=== PATIENT | male | born 1955 | race Caucasian/White ===

== ENCOUNTER 2019-08-27 14:35 | Emergency (ER) | payer MEDICARE, MEDICAID ==
[~2019-08-27] VITALS: Ht 180.3 cm; Wt 90.9 kg
[~2019-08-27 14:35] MED LIST: BACL10TA PO; CEPH-572 PO; FENO145T38 PO; KRIL500C PO; NITR100C PO; OMEP40CA13 PO; QUET-1 PO; TEMA15CA5 PO; UBID100C45 PO; ZOLP10TA PO
--- NOTE | 2019-08-27 15:28 | NUR ---
Awaitng ED provider.
--- NOTE | 2019-08-27 15:35 | NUR ---
Layne dee at bedside.
[2019-08-27] MEDS ORDERED: ketorolac tromethamine 15mg/ml inj. IM ONE (15:45)
[2019-08-27 15:59] LABS: BASOPHILS # (AUTO) 0.1 X10'3 (0-0.2); EOSINOPHILS # (AUTO) 0.3 X10'3 (0-0.9); EOSINOPHILS % (AUTO) 4.2 % (0-6); HEMATOCRIT 38.4 % (42.0-52.0); HEMOGLOBIN 13.2 g/dl (14.0-17.9); LYMPHOCYTES # (AUTO) 1.9 X10'3 (1.1-4.8); LYMPHOCYTES % (AUTO) 31.7 % (21-51); MEAN CORPUSCULAR HEMOGLOBIN 27.1 PG (27.0-31.0); MEAN CORPUSCULAR HGB CONC 34.3 g/dL (33.0-36.5); MEAN CORPUSCULAR VOLUME 78.9 FL (78-98); MEAN PLATELET VOLUME 6.6 FL (7.4-10.4); MONOCYTES # (AUTO) 0.5 X10'3 (0-0.9); MONOCYTES % (AUTO) 7.8 % (2-12); NEUTROPHILS # (AUTO) 3.4 X10'3 (1.8-7.7); NEUTROPHILS % (AUTO) 55.3 % (42-75); PLATELET COUNT 250 X10'3 (140-440); RED BLOOD COUNT 4.87 X10'6 (4.70-6.10); RED CELL DISTRIBUTION WIDTH 16.1 % (11.5-14.5); WHITE BLOOD COUNT 6.1 X10'3 (4.5-11.0)
[2019-08-27 16:17] LABS: CLARITY,URINE CLEAR (Clear); GLUCOSE, URINE NEGATIVE (Neg); KETONES,URINE NEGATIVE (Neg); LEUKOCYTE ESTERASE ,URINE TRACE (Neg); NITRITES, URINE NEGATIVE (Neg); OCCULT BLOOD,URINE NEGATIVE (Neg); PH,URINE 5.5 (4.8-8.0); PROTEIN,URINE NEGATIVE (Neg); UROBILINOGEN,URINE 0.2 E.U/dL (0.2-1.0)
[2019-08-27 16:19] LABS: ALANINE AMINOTRANSFERASE 28 U/L (12-78); ALBUMIN 3.4 G/DL (3.4-5.0); ALBUMIN/GLOBULIN RATIO 0.9 (1.1-1.5); ALKALINE PHOSPHATASE 87 IU/L (46-116); ANION GAP 3 (8-16); ASPARTATE AMINO TRANSFERASE 16 U/L (10-37); BILIRUBIN,TOTAL 0.3 MG/DL (0.1-1.0); BLOOD UREA NITROGEN 19 MG/DL (7-18); BUN/CREATININE RATIO 44.2 (5.4-32.0); CHLORIDE 107 MMOL/L (99-107); CREATININE 0.43 MG/DL (0.60-1.10); GLUCOSE 92 MG/DL (70-104); LIPASE 211 U/L (73-393); POTASSIUM 4.2 MMOL/L (3.5-5.1); SODIUM 142 MMOL/L (135-145); TOTAL CARBON DIOXIDE 32.1 MMOL/L (24-32); TOTAL PROTEIN 7.3 G/DL (6.4-8.2); eGFR > 90 ML/MIN
[2019-08-27 16:20] LABS: COLOR,URINE DARK YELLOW (Yellow); UA COLLECTION TYPE STRAIGHT CATH
[2019-08-27 16:32] LABS: BACTERIA,URINE FEW /HPF (Neg); MUCUS STRANDS MANY /LPF (Neg); RBC,URINE 0-2 /HPF (0-2); SQUAMOUS EPITHELIAL CELL,UR MODERATE /LPF (FEW); TRANSITIONAL EPI CELLS,URINE FEW /HPF; WBC CLUMPS,URINE FEW /HPF (NEGATIVE); YEAST FEW /HPF (NEGATIVE)
--- NOTE | 2019-08-27 16:44 | NUR ---
Straight cath patient,noted 300ml dark yellow urine, spouse at bedside.
[2019-08-27] MEDS ORDERED: cephalexin 250mg capsule PO ONE (16:50)
[2019-08-27] MEDS ORDERED: CEPH500C5 PO (16:53)
[2019-08-27] MEDS ORDERED: L. R1CAP4 PO (16:53)
[2019-08-27 17:10] VITALS: BP 118/89
== END 2019-08-27 17:11 | disposition home or self-care (01) ==
LOC: ER 14:35
DX: N39.0 Urinary tract infection, site not specified (principal); G82.20 Paraplegia, unspecified; Z79.2 Long term (current) use of antibiotics; Z79.899 Other long term (current) drug therapy
CPT/HCPCS: 36415; 80053; 81001; 83690; 85025; 87088; 96372; 99284; J1885

== ENCOUNTER 2021-09-12 11:17 | Inpatient (IN) | payer MEDICARE, MEDICAID ==
[~2021-09-12] VITALS: Ht 180.3 cm; Wt 88.6 kg
[~2021-09-12 11:17] MED LIST changes: +L. R1CAP4 PO; -OMEP40CA13 PO; +OMEP40CA21 PO
[2021-09-12 11:55] LABS: BASOPHILS % (AUTO) 0.4 % (0-1); EOSINOPHILS # (AUTO) 0.1 X10'3 (0-0.9); HEMATOCRIT 41.6 % (42.0-52.0); HEMOGLOBIN 13.8 g/dl (14.0-17.9); LYMPHOCYTES # (AUTO) 1.4 X10'3 (1.1-4.8); LYMPHOCYTES % (AUTO) 18.8 % (21-51); MEAN CORPUSCULAR HEMOGLOBIN 26.3 PG (27.0-31.0); MEAN CORPUSCULAR HGB CONC 33.1 g/dL (33.0-36.5); MEAN CORPUSCULAR VOLUME 79.4 FL (78-98); MEAN PLATELET VOLUME 6.6 FL (7.4-10.4); MONOCYTES # (AUTO) 0.5 X10'3 (0-0.9); NEUTROPHILS # (AUTO) 5.3 X10'3 (1.8-7.7); NEUTROPHILS % (AUTO) 71.8 % (42-75); PLATELET COUNT 222 X10'3 (140-440); RED BLOOD COUNT 5.25 X10'6 (4.70-6.10); RED CELL DISTRIBUTION WIDTH 17.9 % (11.5-14.5); WHITE BLOOD COUNT 7.3 X10'3 (4.5-11.0)
[2021-09-12 12:07] LABS: ALANINE AMINOTRANSFERASE 31 U/L (12-78); ALBUMIN 3.1 G/DL (3.4-5.0); ALBUMIN/GLOBULIN RATIO 0.8 (1.1-1.5); ALKALINE PHOSPHATASE 76 IU/L (46-116); ANION GAP 2 (8-16); ASPARTATE AMINO TRANSFERASE 16 U/L (10-37); BILIRUBIN,TOTAL 0.4 MG/DL (0.1-1.0); BLOOD UREA NITROGEN 15 MG/DL (7-18); BUN/CREATININE RATIO 31.9 (5.4-32.0); CALCIUM 8.9 MG/DL (8.5-10.1); CHLORIDE 102 MMOL/L (99-107); CREATININE 0.47 MG/DL (0.60-1.10); GLUCOSE 130 MG/DL (70-104); SODIUM 143 MMOL/L (135-145); TOTAL CARBON DIOXIDE 39.2 MMOL/L (24-32); TOTAL PROTEIN 6.8 G/DL (6.4-8.2); eGFR > 90 ML/MIN
--- NOTE | 2021-09-12 12:50 | NUR ---
Pt refused to have covid [address] Tsang informed of pt refusal. No new orders.
[2021-09-12] MEDS ORDERED: iohexol 350MG/ML 100ml bottle IV ONE (14:01)
[2021-09-12] MEDS ORDERED: magnesium Cl slow-release 64mg tablet PO PRN (16:20)
[2021-09-12] MEDS ORDERED: acetaminophen 325mg tablet PO PRN (16:20)
[2021-09-12] MEDS ORDERED: magnesium 2GM in 50ml NS 50 ML IV PRN (16:20)
[2021-09-12] MEDS ORDERED: magnesium 4gm in 100ml NS 100 ML IV PRN (16:20)
[2021-09-12] MEDS ORDERED: potassium Cl 20 mEq SR tablet PO PRN ×2 (16:20)
[2021-09-12] MEDS ORDERED: potassium CL 10mEq/100ml bag 100 ML IV PRN (16:20)
--- NOTE | 2021-09-12 16:50 | NUR ---
While at [place] [facility] Pt reports he is very uncomfortable and insist on being placed back in special wheel chair from home. Pt placed in chair, house superivisor notified pt in need of special bed for quad needs
[2021-09-12] MEDS ORDERED: BACL-11 PO ×2 (16:57)
[2021-09-12] MEDS ORDERED: TEMA30CA PO (16:57)
[2021-09-12] MEDS ORDERED: QUET200T31 PO (16:57)
[2021-09-12] MEDS ORDERED: ZOLP10TA PO (16:57)
[2021-09-12] MEDS ORDERED: OMEP20TA5 PO (17:07)
[2021-09-12] MEDS ORDERED: LIDOcaine 2% 10ml TOPICAL JELLY (Urojet) TP ONE (19:00)
[2021-09-12 20:00] VITALS: BP 120/64
[2021-09-12] MEDS: K and/or MAG REPLACEMENT MC SCH (20:00)
[2021-09-12 22:00] VITALS: BP 120/64
[2021-09-12 22:17] LABS: MAGNESIUM 2.2 MG/DL (1.5-2.4)
[2021-09-12] MEDS ORDERED: zolpidem 5mg tablet PO SCH (23:30)
[2021-09-12] MEDS ORDERED: temazepam 15mg capsule PO SCH (23:30)
[2021-09-12] MEDS: baclofen 10mg tablet PO SCH (23:33)
[2021-09-13 02:00] VITALS: BP 150/70
--- NOTE | 2021-09-13 06:37 | NUR ---
Patient transfer from ER into PCU room 3023 B in a stable condition, no signs of distress noted, oriented to room bed in lower position will continue to monitor and report changes
--- NOTE | 2021-09-13 06:39 | NUR ---
Problems reprioritized. Patient report given, questions answered & plan of care reviewed with Sara LIM .
[2021-09-13 07:00] VITALS: BP 92/56
[2021-09-13 07:05] LABS: ALBUMIN 2.9 G/DL (3.4-5.0); ANION GAP 3 (8-16); BLOOD UREA NITROGEN 16 MG/DL (7-18); BUN/CREATININE RATIO 35.6 (5.4-32.0); CHLORIDE 104 MMOL/L (99-107); CREATININE 0.45 MG/DL (0.60-1.10); GLUCOSE 110 MG/DL (70-104); MAGNESIUM 2.3 MG/DL (1.5-2.4); POTASSIUM 4.1 MMOL/L (3.5-5.1); SODIUM 143 MMOL/L (135-145); TOTAL CARBON DIOXIDE 36.1 MMOL/L (24-32); eGFR > 90 ML/MIN
--- NOTE | 2021-09-13 07:16 | NUR ---
Patient in room PCU 3023. I have received report from Corrine LIM and had the opportunity to ask questions and assume patient care. Patient resting quietly, resp even and unlabored, cpap in use.no distress noted at this time
--- NOTE | 2021-09-13 07:18 | NUR ---
Patient in room PCU 3023. I have received report from Corrine LIM and had the opportunity to ask questions and assume patient care. Pt semi fowlers, supported with many pillows, Cpap in place. no s/sx acute distress. safety measures in place
[2021-09-13 07:22] LABS: BASOPHILS % (AUTO) 0.4 % (0-1); EOSINOPHILS # (AUTO) 0.2 X10'3 (0-0.9); EOSINOPHILS % (AUTO) 3.3 % (0-6); HEMATOCRIT 39.7 % (42.0-52.0); HEMOGLOBIN 12.9 g/dl (14.0-17.9); LYMPHOCYTES # (AUTO) 1.7 X10'3 (1.1-4.8); LYMPHOCYTES % (AUTO) 24.8 % (21-51); MEAN CORPUSCULAR HEMOGLOBIN 26.1 PG (27.0-31.0); MEAN CORPUSCULAR HGB CONC 32.4 g/dL (33.0-36.5); MEAN CORPUSCULAR VOLUME 80.5 FL (78-98); MEAN PLATELET VOLUME 6.9 FL (7.4-10.4); MONOCYTES # (AUTO) 0.5 X10'3 (0-0.9); MONOCYTES % (AUTO) 7.7 % (2-12); NEUTROPHILS # (AUTO) 4.4 X10'3 (1.8-7.7); NEUTROPHILS % (AUTO) 63.8 % (42-75); PLATELET COUNT 209 X10'3 (140-440); RED BLOOD COUNT 4.92 X10'6 (4.70-6.10); RED CELL DISTRIBUTION WIDTH 17.7 % (11.5-14.5); WHITE BLOOD COUNT 6.9 X10'3 (4.5-11.0)
[2021-09-13] MEDS: K and/or MAG REPLACEMENT MC SCH ×2 (08:00→20:00)
[2021-09-13] MEDS ORDERED: COVID-19 VACC, MRNA(PFIZER)/PF--BNT162b2 syringe IMVAC ONE (10:00)
[2021-09-13 11:00] VITALS: BP 97/73
[2021-09-13 15:00] VITALS: BP 113/64
[2021-09-13] MEDS ORDERED: mag hydrox/Alum hydrox/simeth 30ml oral suspension PO PRN (15:50)
[2021-09-13] MEDS ORDERED: baclofen 10mg tablet PO PRN (15:50)
--- NOTE | 2021-09-13 16:45 | NUR ---
pt unable to complete orthostatic vitals. pt quadraplegic, without yet having seen PT. MD aware.
--- NOTE | 2021-09-13 17:26 | NUR ---
Orientee documentation: I have reviewed and agree with all interventions, assessments performed and documented by Kelvin LIM. Orientvasyl Medication Administration: For this medication-pass time frame, all medication were reviewed, dispensed, administered and documented per hospital policy by Kelvin LIM.
[2021-09-13 18:00] VITALS: BP 128/73
--- NOTE | 2021-09-13 18:21 | NUR ---
Problems reprioritized. Patient report given, questions answered & plan of care reviewed with Maliha LIM. Pt semi fowlers to right side in bed, supported with pillows with at bedside. dyspnic at baseline. no s/sx acute distress
--- NOTE | 2021-09-13 18:55 | NUR ---
Received report from offgoing RN; opportunities to ask question and review plan of care provided
[2021-09-13] MEDS ORDERED: quetiapine 100mg tablet PO SCH (20:30)
[2021-09-13] MEDS: baclofen 10mg tablet PO SCH (20:52)
[2021-09-13] MEDS ORDERED: zolpidem 5mg tablet PO SCH (21:00)
[2021-09-13 22:00] VITALS: BP 115/66
[2021-09-13] MEDS: CefTRIAXone 2gm/D5W 50ml BAG 50 ML IV SCH (23:34)
[2021-09-14 02:00] VITALS: BP 125/75
--- NOTE | 2021-09-14 06:00 | NUR ---
Patient in room PCU 3023. I have received report from RAPHAEL Jett and had the opportunity to ask questions and assume patient care.
--- NOTE | 2021-09-14 06:41 | NUR ---
Pt resting comfortably in bed, on 4LNC. Uneventful shift lab technician, pt was turned and repositioned q2hr to protect existing skin integrity. Pt denies pain at this time; CAUTI prevention measures in place for pt zaidi catheter. No bowel movement during the night. Pt tolerated all oral intake with no nausea/vomiting noted. Report given to oncoming RN.
[2021-09-14 07:11] LABS: BASOPHILS % (AUTO) 0.4 % (0-1); EOSINOPHILS # (AUTO) 0.2 X10'3 (0-0.9); EOSINOPHILS % (AUTO) 2.6 % (0-6); HEMATOCRIT 42.3 % (42.0-52.0); LYMPHOCYTES # (AUTO) 1.5 X10'3 (1.1-4.8); LYMPHOCYTES % (AUTO) 18.1 % (21-51); MEAN CORPUSCULAR HEMOGLOBIN 26.4 PG (27.0-31.0); MEAN CORPUSCULAR VOLUME 80.1 FL (78-98); MEAN PLATELET VOLUME 6.8 FL (7.4-10.4); MONOCYTES # (AUTO) 0.5 X10'3 (0-0.9); MONOCYTES % (AUTO) 5.9 % (2-12); NEUTROPHILS # (AUTO) 5.9 X10'3 (1.8-7.7); PLATELET COUNT 202 X10'3 (140-440); RED BLOOD COUNT 5.28 X10'6 (4.70-6.10); RED CELL DISTRIBUTION WIDTH 17.5 % (11.5-14.5); WHITE BLOOD COUNT 8.1 X10'3 (4.5-11.0)
[2021-09-14 07:37] LABS: ANION GAP 1 (8-16); BLOOD UREA NITROGEN 12 MG/DL (7-18); BUN/CREATININE RATIO 26.7 (5.4-32.0); CHLORIDE 104 MMOL/L (99-107); CREATININE 0.45 MG/DL (0.60-1.10); GLUCOSE 97 MG/DL (70-104); MAGNESIUM 2.3 MG/DL (1.5-2.4); POTASSIUM 4.1 MMOL/L (3.5-5.1); SODIUM 143 MMOL/L (135-145); TOTAL CARBON DIOXIDE 38.4 MMOL/L (24-32); eGFR > 90 ML/MIN
[2021-09-14] MEDS: K and/or MAG REPLACEMENT MC SCH (07:44)
[2021-09-14] MEDS: CefTRIAXone 2gm/D5W 50ml BAG 50 ML IV SCH (07:53)
[2021-09-14] MEDS ORDERED: pantoprazole 40mg Tablet.DR PO SCH (08:00)
[2021-09-14] MEDS ORDERED: LIDOcaine 1% (10mg/ml) 2ml vial ONE (08:18)
[2021-09-14 09:13] VITALS: BP 130/69
[2021-09-14 09:43] VITALS: BP 148/88
[2021-09-14 10:43] LABS: GLUCOSE,BODY FLUID 113 MG/DL; LDH,BODY FLUID 54 U/L; TOTAL PROTEIN,BODY FLUID 2.7 G/DL
[2021-09-14 11:00] VITALS: BP 104/67
[2021-09-14 11:04] LABS: BFSOURCE RIGHT PLEURAL FLD
--- NOTE | 2021-09-14 11:22 | NUR ---
Patient present SO2 between 89-91 % after hold the oxygen for 30min per order DR. Cortez. I paged the doctor to notify the findidngs.
[2021-09-14 11:30] LABS: EOSINOPHILS,BODY FLUID 1 %; LYMPHOCYTES,BODY FLUID 67 %; MONOCYTES,BODY FLUID 3 %; NEUTROPHILS,BODY FLUID 29 %
[2021-09-14 11:31] LABS: BF RBC COUNT 8550 /CU MM; BF WBC COUNT 1025 /CU MM (0-1000); BFAPPEAR CLOUDY; BFCOLOR RED; BFVOLUME 49 ML
--- NOTE | 2021-09-14 14:28 | NUR ---
O2 Sat at rest on room air:_84_% If below 89%: Recovery O2 Sat at rest on _2_LPM:_95_% via____NC (mask/nasal cannula, etc..) No further documentation is necessary. If O2 Sat did not drop below 89% on room air,ambulate patient on room air. O2 Sat while ambulating on room air:___% Recovery O2 Sat while ambulating on ___LPM:___% No further documentation is necessary. If patient does not drop below 89% while ambulating, he/she does not qualify for home O2.
--- NOTE | 2021-09-14 15:22 | NUR ---
PRESSURE ULCER EDUCATION: DEFINITION: A pressure ulcer is an area of skin that breaks down when you stay in one position too long. The constant pressure against the skin reduces the blood flow to that area and the affected tissue dies. CAUSES: "Being bedridden or in a wheelchair "Fragile skin "Having a chronic condition, such as diabetes or vascular disease "Inability to move certain parts of your body without assistance "Older age "Incontinence of urine or stool SYMPTOMS: "A reddened area that DOES NOT turn white when pressed on - this can be the beginning of a pressure ulcer "A blister, deep sore or a crater - these can be advanced pressure ulcers FIRST AID: "Relieve the pressure on this area "Keep the area clean and dry "Call your primary doctor if you see any of the above symptoms "DO NOT massage the area "DO NOT use a donut shaped or ring shaped pillow- these actually interfere with the blood flow and cause complications PREVENTION: "Check for pressure ulcers everyday "Change position at least every two hours to relieve pressure "Use items that help relieve pressure- pillows, sheepskin, foam padding, and powders. "Keep skin clean and dry "Eat healthy well balanced meals "Exercise daily IF YOU SEE ANY OF THESE SYMPTOMS WHILE IN THE HOSPITAL - TELL YOUR NURSE IMMEDIATELY. IF YOU SEE ANY OF THESE SYMPTOMS WHILE AT HOME OR HAVE ANY QUESTIONS OR CONCERNS ABOUT PRESSURE ULCERS - CALL YOUR PRIMARY DOCTOR IMMEDIATELY. Addendum: 09/14/21 at 1522 by Mae Roach RN Amended: Links added.
--- NOTE | 2021-09-14 15:34 | NUR ---
Bam Consult: Bam Subramanian w/ skin intact per physical assessment in EMR. Addendum: 09/14/21 at [address] Amended: Links added.
[2021-09-14] MEDS ORDERED: LEVO500T90 PO (15:46)
[2021-09-14] MEDS ORDERED: BACL-11 PO (15:47)
--- NOTE | 2021-09-14 17:25 | NUR ---
Patient discharge alert and oriented with 02 machine. IV's line and Grove Catheter was removed. Discharge instructions was discussed and the important to follow up with his PCP. Notified the medication was sent to the [facility]. The was carried by the family.
[2021-09-14] MEDS ORDERED: lactobacillus rhamnosus 10,000 MMU CELLS/CAPSULE PO SCH (20:00)
== END 2021-09-14 17:15 | disposition home or self-care (01) | DRG 189 ==
LOC: ER 11:18 → ED HOLD 16:22 → PCU 3S 19:30
PROVIDERS: ADMIT Internal Medicine; ATTEND Internal Medicine
PROC: B32T1ZZ Computerized Tomography (CT Scan) of Left Pulmonary Artery using Low Osmolar Contrast (ICD-10-PCS; 2021-09-12)
PROC: B3201ZZ Computerized Tomography (CT Scan) of Thoracic Aorta using Low Osmolar Contrast (ICD-10-PCS; 2021-09-12)
PROC: B32S1ZZ Computerized Tomography (CT Scan) of Right Pulmonary Artery using Low Osmolar Contrast (ICD-10-PCS; 2021-09-12)
PROC: 0W993ZZ Drainage of Right Pleural Cavity, Percutaneous Approach (ICD-10-PCS; principal; 2021-09-14)
PROC: 5A09357 Assistance with Respiratory Ventilation, Less than 24 Consecutive Hours, Continuous Positive Airway Pressure (ICD-10-PCS; 2021-09-14)
DX: J96.01 Acute respiratory failure with hypoxia (principal); G82.50 Quadriplegia, unspecified; J91.8 Pleural effusion in other conditions classified elsewhere; I50.30 Unspecified diastolic (congestive) heart failure; I11.0 Hypertensive heart disease with heart failure; I48.91 Unspecified atrial fibrillation; Z99.3 Dependence on wheelchair
CPT/HCPCS: 0001A; 32555; 36415; 71045; 71275; 80048; 80053; 82945; 83615; 83735; 83880; 83986; 84132; 84157; 84484; 85025; 87040; 87070; 87075; 87077; 87081; 87186; 89051; 91300; 93005; 93306; 97163; 97530; 99285; G0378; J0696; J3490; Q9967

== ENCOUNTER 2021-09-25 13:12 | Emergency (ER) | payer MEDICARE, MEDICAID ==
[~2021-09-25] VITALS: Ht 180.3 cm; Wt 100.0 kg
[~2021-09-25 13:12] MED LIST changes: +BACL-11 PO; -BACL10TA PO; -CEPH-572 PO; -FENO145T38 PO; -KRIL500C PO; -L. R1CAP4 PO; +LEVO500T90 PO; -NITR100C PO; +OMEP20TA5 PO; -OMEP40CA21 PO; -QUET-1 PO; +QUET200T31 PO; -TEMA15CA5 PO; -UBID100C45 PO
[2021-09-25 13:16] VITALS: BP 120/74
[2021-09-25 13:41] LABS: BASOPHILS % (AUTO) 0.5 % (0-1); EOSINOPHILS # (AUTO) 0.2 X10'3 (0-0.9); EOSINOPHILS % (AUTO) 1.9 % (0-6); HEMATOCRIT 44.5 % (42.0-52.0); HEMOGLOBIN 14.5 g/dl (14.0-17.9); LYMPHOCYTES # (AUTO) 1.3 X10'3 (1.1-4.8); MEAN CORPUSCULAR HGB CONC 32.5 g/dL (33.0-36.5); MEAN PLATELET VOLUME 6.8 FL (7.4-10.4); MONOCYTES # (AUTO) 0.5 X10'3 (0-0.9); MONOCYTES % (AUTO) 6.2 % (2-12); NEUTROPHILS # (AUTO) 5.9 X10'3 (1.8-7.7); NEUTROPHILS % (AUTO) 75.4 % (42-75); PLATELET COUNT 233 X10'3 (140-440); RED BLOOD COUNT 5.57 X10'6 (4.70-6.10); RED CELL DISTRIBUTION WIDTH 17.4 % (11.5-14.5); WHITE BLOOD COUNT 7.8 X10'3 (4.5-11.0)
[2021-09-25 13:58] LABS: ALANINE AMINOTRANSFERASE 20 U/L (12-78); ALBUMIN 3.1 G/DL (3.4-5.0); ALBUMIN/GLOBULIN RATIO 0.8 (1.1-1.5); ALKALINE PHOSPHATASE 80 IU/L (46-116); ANION GAP 3 (8-16); ASPARTATE AMINO TRANSFERASE 15 U/L (10-37); BILIRUBIN,TOTAL 0.5 MG/DL (0.1-1.0); BLOOD UREA NITROGEN 14 MG/DL (7-18); CALCIUM 9.2 MG/DL (8.5-10.1); CHLORIDE 100 MMOL/L (99-107); GLUCOSE 120 MG/DL (70-104); POTASSIUM 3.8 MMOL/L (3.5-5.1); SODIUM 141 MMOL/L (135-145); TOTAL CARBON DIOXIDE 37.8 MMOL/L (24-32); eGFR > 90 ML/MIN
== END 2021-09-25 23:05 | disposition left against medical advice (07) ==
LOC: ER 13:13
DX: R06.02 Shortness of breath (principal); Z53.21 Procedure and treatment not carried out due to patient leaving prior to being seen by health care provider
CPT/HCPCS: 36415; 71045; 80053; 83880; 84484; 85025; 93005

== ENCOUNTER 2021-10-26 09:39 | Outpatient (CLI) | payer MEDICARE, MEDICAID ==
[~2021-10-26] VITALS: Ht 182.9 cm; Wt 90.7 kg
[~2021-10-26 09:39] MED LIST changes: -LEVO500T90 PO
[2021-10-26] MEDS ORDERED: normal saline 500ml IV soln 500 ML IV ONE (10:35)
[2021-10-26] MEDS ORDERED: regadenoson 0.4mg/5ml syringe IV ONE (10:35)
[2021-10-26] MEDS ORDERED: nitroGLYCERIN 0.4mg SUBLingual tab SL PRN (10:35)
[2021-10-26] MEDS ORDERED: aminophylline 250mg/10ml inj. IV PRN (10:35)
[2021-10-26 11:22] VITALS: BP 111/76
[2021-10-26 11:29] VITALS: BP 70/50
[2021-10-26 11:30] VITALS: BP 70/35
[2021-10-26 11:31] VITALS: BP 93/51
[2021-10-26 11:32] VITALS: BP 99/49
[2021-10-26 11:33] VITALS: BP 107/55
== END 2021-10-26 23:59 | disposition home or self-care (01) ==
LOC: RAD 09:39
PROVIDERS: ATTEND Internal Medicine Interventional Cardiology
DX: I48.91 Unspecified atrial fibrillation (principal); I50.9 Heart failure, unspecified; I51.7 Cardiomegaly; I50.31 Acute diastolic (congestive) heart failure
CPT/HCPCS: 78452; 93017; A9500; J0280; J2785; J7040

== ENCOUNTER 2021-10-30 11:11 | Day surgery (SDC) | payer MEDICARE, MEDICAID ==
[2021-10-19 12:31] LABS: BASOPHILS % (AUTO) 0.3 % (0-1); EOSINOPHILS # (AUTO) 0.2 X10'3 (0-0.9); EOSINOPHILS % (AUTO) 1.9 % (0-6); HEMATOCRIT 40.5 % (42.0-52.0); HEMOGLOBIN 13.5 g/dl (14.0-17.9); LYMPHOCYTES # (AUTO) 1.3 X10'3 (1.1-4.8); MEAN CORPUSCULAR HEMOGLOBIN 26.5 PG (27.0-31.0); MEAN CORPUSCULAR HGB CONC 33.3 g/dL (33.0-36.5); MEAN CORPUSCULAR VOLUME 79.6 FL (78-98); MONOCYTES # (AUTO) 0.5 X10'3 (0-0.9); MONOCYTES % (AUTO) 5.5 % (2-12); NEUTROPHILS # (AUTO) 7.4 X10'3 (1.8-7.7); NEUTROPHILS % (AUTO) 78.3 % (42-75); PLATELET COUNT 255 X10'3 (140-440); RED BLOOD COUNT 5.09 X10'6 (4.70-6.10); RED CELL DISTRIBUTION WIDTH 16.5 % (11.5-14.5); WHITE BLOOD COUNT 9.4 X10'3 (4.5-11.0)
[2021-10-19 12:39] LABS: ALBUMIN 2.9 G/DL (3.4-5.0); ANION GAP 3 (8-16); BLOOD UREA NITROGEN 15 MG/DL (7-18); BUN/CREATININE RATIO 31.9 (5.4-32.0); CHLORIDE 105 MMOL/L (99-107); CREATININE 0.47 MG/DL (0.60-1.10); GLUCOSE 154 MG/DL (70-104); POTASSIUM 4.1 MMOL/L (3.5-5.1); SODIUM 142 MMOL/L (135-145); TOTAL CARBON DIOXIDE 33.7 MMOL/L (24-32); eGFR > 90 ML/MIN
[2021-10-19 12:44] LABS: APTT 29 SECONDS (22-32)
[2021-10-30] VITALS (12 sets, daily range): BP systolic 86–151; BP diastolic 36–94
[~2021-10-30] VITALS: Ht 180.3 cm; Wt 90.9 kg
[2021-10-30] MEDS ORDERED: [UNRECOGNIZED DRUG - CODE] (11:39)
[2021-10-30] MEDS ORDERED: ZOLP10TA PO (11:39)
[2021-10-30] MEDS ORDERED: NITR50CA PO (11:39)
[2021-10-30] MEDS ORDERED: FURO-150 PO (11:39)
[2021-10-30] MEDS ORDERED: QUET50TA PO (11:39)
[2021-10-30] MEDS ORDERED: TEMA15CA PO (11:39)
[2021-10-30] MEDS ORDERED: APIX5TAB3 PO (11:39)
[2021-10-30] MEDS ORDERED: NITR100C PO (11:48)
[2021-10-30] MEDS ORDERED: TEMA30CA PO (11:48)
[2021-10-30] MEDS ORDERED: FURO40TA4 PO (11:48)
[2021-10-30] MEDS ORDERED: fentaNYL/PF 50MCG/1 ML 2ML syringe IV ONE (11:50)
[2021-10-30] MEDS ORDERED: MIDAZolam 1mg/ml 10ml vial IV ONE (11:50)
[2021-10-30] MEDS ORDERED: normal saline 1000ml 1,000 ML IV SCH (11:50)
== END 2021-10-30 14:55 | disposition home or self-care (01) ==
LOC: SSTAY O 11:11
PROVIDERS: ATTEND Internal Medicine Interventional Cardiology
DX: I48.91 Unspecified atrial fibrillation (principal); G47.33 Obstructive sleep apnea (adult) (pediatric); I50.9 Heart failure, unspecified; Z79.899 Other long term (current) drug therapy
CPT/HCPCS: 36415; 80048; 85025; 85610; 85730; 92960; 93005; 94760; 94799; J2250; J3010; J7030

== ENCOUNTER 2022-06-07 09:54 | Outpatient (CLI) | payer MEDICARE, MEDICAID ==
[~2022-06-07 09:54] MED LIST changes: +APIX5TAB3 PO; -BACL-11 PO; +FURO40TA4 PO; +NITR100C PO; +OMEP20TA43 PO; -OMEP20TA5 PO; -QUET200T31 PO; +QUET50TA PO; +TEMA30CA PO; +iohexol 350MG/ML 100ml bottle IV ONE
[2022-06-07 11:16] LABS: ALANINE AMINOTRANSFERASE 39 U/L (12-78); ALBUMIN 3.1 G/DL (3.4-5.0); ALBUMIN/GLOBULIN RATIO 0.8 (1.1-1.5); ALKALINE PHOSPHATASE 90 IU/L (46-116); ANION GAP 10 (8-16); ASPARTATE AMINO TRANSFERASE 23 U/L (10-37); BILIRUBIN,TOTAL 0.3 MG/DL (0.1-1.0); BLOOD UREA NITROGEN 12 MG/DL (7-18); BUN/CREATININE RATIO 23.1 (5.4-32.0); CALCIUM 9.1 MG/DL (8.5-10.1); CHLORIDE 103 MMOL/L (99-107); CREATININE 0.52 MG/DL (0.60-1.10); GLUCOSE 201 MG/DL (70-104); SODIUM 146 MMOL/L (135-145); TOTAL CARBON DIOXIDE 32.9 MMOL/L (24-32); TOTAL PROTEIN 7.1 G/DL (6.4-8.2); eGFR > 90 ML/MIN
== END 2022-06-07 23:59 | disposition home or self-care (01) ==
LOC: RAD 09:54
PROVIDERS: ATTEND Nurse Practitioner Family
DX: E27.8 Other specified disorders of adrenal gland (principal); M47.819 Spondylosis without myelopathy or radiculopathy, site unspecified; Z79.899 Other long term (current) drug therapy
CPT/HCPCS: 36415; 74178; 80053; J3490; Q9967